=== PATIENT | female | born 1990 | race Caucasian/White ===

== ENCOUNTER 2019-09-18 04:28 | Emergency (ER) | payer OTHER ==
[~2019-09-18] VITALS: Ht 147.3 cm; Wt 42.6 kg
[2019-09-18 04:35] VITALS: Ht 147.3 cm; Wt 42.6 kg
[2019-09-18 05:34] VITALS: BP 116/80
== END 2019-09-18 05:34 | disposition home or self-care (01) ==
LOC: ED 04:28
DX: O26.891 Other specified pregnancy related conditions, first trimester (principal); R10.30 Lower abdominal pain, unspecified
CPT/HCPCS: 36415